=== PATIENT | male | born 1975 | race Caucasian/White ===

== ENCOUNTER 2022-08-13 02:49 | Emergency (ER) | payer OTHER ==
[~2022-08-13] VITALS: Ht 175.2 cm; Wt 72.6 kg
== END 2022-08-13 04:02 | disposition home or self-care (01) ==
LOC: ED 02:49
DX: G43.909 Migraine, unspecified, not intractable, without status migrainosus (principal); Z91.018 Allergy to other foods; Z88.1 Allergy status to other antibiotic agents